=== PATIENT | female | born 1975 | race African-American/Black ===

== ENCOUNTER 2017-12-18 16:07 | Emergency (ER) | payer OTHER ==
[~2017-12-18] VITALS: Ht 162.6 cm; Wt 59.7 kg
[~2017-12-18 16:07] MED LIST: FLEXERIL10 MG PO; GABAPENTIN600 MG PO; KLONOPIN0.5 M1 PO; LEXAPRO10 MG PO; LISINOPRIL-HCT1 EACH PO; MOBIC7.5 MG PO; MULTIVITAMIN; PERCOCET 7.51 TABLET PO; TRAZODONE HCL100 MG PO
[2017-12-18 17:23] LABS: HEMATOCRIT 32.8 % (36.0-46.0); HEMOGLOBIN 10.7 G/DL (11.9-15.5); MCH 26.8 PG (29.0-34.0); MCHC 32.6 G/DL (30.0-36.0); PLATELET COUNT 283 K/uL (156-360); RBC DIS.WIDTH-CV 15.4 % (11.8-14.6); RBC DIS.WIDTH-SD 45.8 % (39-53); WHITE BLOOD COUNT 5.8 K/uL (4.1-10.2)
[2017-12-18 17:32] LABS: CHLORIDE 104 mEq/L (99-109); POTASSIUM 3.2 mEq/L (3.7-5.4); SODIUM 139 mEq/L (136-147)
[2017-12-18 17:34] LABS: GLUCOSE 95 mg/dL (70-99); TOTAL PROTEIN 7.5 g/dL (6.4-8.3)
[2017-12-18 17:36] LABS: TOTAL BILIRUBIN 0.4 mg/dL (0.0-1.0)
[2017-12-18 17:37] LABS: ALKALINE PHOSPHATASE 73 IU/L (3-129)
[2017-12-18 17:38] LABS: CREATININE 0.9 mg/dL (0.6-1.3); GFR ESTIMATE (CALCULATED) > 59 mL/min/
[2017-12-18 17:39] LABS: AST (GOT) 53 IU/L (2-34); UREA NITROGEN (BUN) 10 mg/dL (9-23)
[2017-12-18 17:40] LABS: ALT (GPT) 61 IU/L (3-49)
[2017-12-18 17:41] LABS: LIPASE 25 U/L (1.0-51.0)
[2017-12-18] MEDS ORDERED: ATARAX,VISTARIL25 MG PO (18:40)
[2017-12-18 18:56] VITALS: BP 00/00
== END 2017-12-18 18:56 | disposition home or self-care (01) ==
LOC: EME 16:07
PROVIDERS: Nurse Practitioner Family
DX: L29.9 Pruritus, unspecified (principal); R79.89 Other specified abnormal findings of blood chemistry; B19.20 Unspecified viral hepatitis C without hepatic coma; F17.210 Nicotine dependence, cigarettes, uncomplicated; Z88.5 Allergy status to narcotic agent
CPT/HCPCS: 80053; 82140; 83690; 85027; 99281; 99284; Q0177